=== PATIENT | female | born 1985 | race Caucasian/White ===

== ENCOUNTER 2023-12-01 15:25 | Emergency (ER) | payer OTHER, SELFPAY ==
[2023-12-01 15:26] VITALS: BP 155/94
--- NOTE | 2023-12-01 17:03 | ED.GENMED ---
History of Present Illness
General
Chief Complaint: Head Injury
Source: patient
Time Seen by Provider: 12/01/23 16:45
Travel History
Have you had any contact with someone who has COVID-19?: No
Do you have any symptoms of coronavirus? Fever > 100 degrees, chills, cough, shortness of breath, sore throat, loss of taste or smell, muscle aches, or headache?: No
History of Present Illness
History of Present Illness:
38-year-old female presents to the emergency room complaining of a head injury. Patient states that she was pulling on a 'sleepy hose' that was stuck. It flew back and struck her above the left eye on the orbital rim. The object did not strike
her directly in the eye. Since then she has been feeling nauseous and having photophobia. She also has a headache. She has not vomited. No focal weakness numbness or tingling.
Past History
Past History
ED Past Medical History: None; Negative Asthma, HTN, Hypercholesterolemia or NIDDM
ED Past Surgical History: (X3) and Tonsilectomy
Social History
Tobacco: Smoker
Alcohol: None
Personal:
Living: with family
Employment: Employed
Family History
Family History: Negative Diabetes, Early CAD, CAD or Sudden
Phy Exam
Physical Exam
Physical Exam:
General: Awake, Alert, Oriented X3. No acute distress.
Vitals: unremarkable
Head: Tender to palpation over the supraorbital rim. No step-offs.
Eyes: Pupils equal, EOMI, no scleral injection, no hyphema noted
Throat: Airway intact, no exudates
Neck: Trachea midline
Lungs: Clear and equal b/l
Heart: Regular rate, no murmurs
Abd: Soft, Nontender, No pulsatile mass
Neuro: Cranial nerves intact, muscle strength equal bilaterally, cerebellar exam normal
Skin: Warm, dry, no rash
Extremities: pulses equal b/l, no edema
Course
Orders/Labs/Results
Orders:
Orders
12/01/23 17:03
CT Head W/o Iv Contrast Urgent
Comment:
Reason For Exam: head injury
Vital Signs
Initial and Last Documented VS:
Initial Vital Signs
Temp Pulse Resp BP Pulse Ox
97.8 F 100 18 155/94 98
12/01/23 15:26 12/01/23 15:26 12/01/23 15:26 12/01/23 15:26 12/01/23 15:26
Last Documented Vital Signs
Temp Pulse Resp BP Pulse Ox
97.8 F 100 18 155/94 98
12/01/23 15:26 12/01/23 15:26 12/01/23 15:26 12/01/23 15:26 12/01/23 15:26
MDM/Problems Addressed
Differential Diagnosis Includes:
Head injury, concussion, contusion
MDM/Problems Addressed:
Patient has normal head CT. Symptoms consistent with concussion. Stable for discharge home.
*Critical Care Note
Total Time (30-74mins, 75-104mins- exclusive of procedures): Not Applicable
ED Attending Note
-
Portions of this chart may have been created with voice recognition software.� Occasional wrong word or��sound alike� substitutions may have occurred due to the inherent limitations of voice recognition software.
Discharge Plan
Departure
Patient Disposition: Home (Routine Discharge)
Date of Disposition: 12/01/23
Time of Disposition: 18:55
Patient with high blood pressure during this ER visit?: Yes
Condition: Good
Discharge Problem:
Head injury
Instructions: Concussion, Adult (DC), BLOOD PRESSURE
Prescriptions:
No Action
ranitidine HCl [Zantac] 150 MG tablet
PO DAILY
Referrals:
Yane Zepeda PA [Family Provider] -
Interventions
Interventions:
*Risk Screen - Suicide Last Done: 12/01/23 15:26
*General Assessment Last Done: 12/01/23 15:26
*Neglect/Abuse Screening Last Done: 12/01/23 15:26
*ED COVID-19 Vaccine History Last Done: 12/01/23 15:26
*Nursing Disposition Last Done: 12/01/23 19:07
ED- Neurological Assessment Last Done: 12/01/23 15:47
ED-Skin Assessment Last Done: 12/01/23 15:47
Discharge Date and Time
Discharge Date/Time: 12/01/23 19:07
== END 2023-12-01 19:07 | disposition home or self-care (01) ==
LOC: EMR 15:25
PROVIDERS: EMERGENCY PHYSICIAN Emergency Medicine; FAMILY PHYSICIAN Family Medicine
DX: S09.90XA Unspecified injury of head, initial encounter (principal); W22.8XXA Striking against or struck by other objects, initial encounter; F17.200 Nicotine dependence, unspecified, uncomplicated
CPT/HCPCS: 99284; 70450